=== PATIENT | female | born 1975 | race Caucasian/White ===

== ENCOUNTER 2017-10-11 07:56 | Day surgery (SDC) | payer MEDICAID ==
[~2017-10-11 07:56] MED LIST: Midazolam 1 MG/ML 2 ML SDV ONE; Propofol 200 MG/20 ML SDV ONE; fentaNYL 100 MCG/2 ML SDV ONE
[2017-10-11] MEDS ORDERED: Dextrose 5%-Lactated Ringers 1,000 ML IV SCH (08:15)
[2017-10-11] MEDS ORDERED: Glycopyrrolate 0.2 MG/ML 2 ML SDV IVPUSH ONE (09:00)
[2017-10-11] MEDS ORDERED: Propofol 200 MG/20 ML SDV ONE (10:03)
--- NOTE | 2017-10-15 09:15 | OR ---
DATE OF PROCEDURE: 10/11/2017 PREOPERATIVE DIAGNOSIS: Dysphagia associated with history of Schatzki's ring. POSTOPERATIVE DIAGNOSIS: Dysphagia associated with history of Schatzki's ring. OPERATIVE PROCEDURE: Upper gastrointestinal endoscopy with dilation of esophagus (06820). ANESTHESIA: IV sedation. INDICATION FOR PROCEDURE: This is a 42-year-old presenting with some recurrent dysphagia. She is status post previous upper endoscopy with dilation of Schatzki's ring in the distal esophagus. Plan is to proceed with repeat upper endoscopy with biopsies and/or dilation as indicated. Potential risks including bleeding and perforation were discussed, and the patient wishes to proceed. DETAILS OF PROCEDURE: The patient was taken to the operating room and placed in a left lateral decubitus position. IV sedation was administered, after which the upper GI endoscope was passed orally through the length of the esophagus and into the stomach with retroflexion view of the fundus, and thereafter, through the pyloric channel and into the proximal duodenum. The findings included a normal hypopharynx, larynx, upper esophageal sphincter, and esophageal body. At the distal esophagus, there was no true ring, but there was some generalized thickening and narrowing in the area of the esophagogastric junction. It was not associated with any significant mucosal inflammation. The scope could be passed through that area without difficulty. Remainder of the stomach, pyloric channel, and duodenal exams were unremarkable. At this point, a guidewire was passed through the stomach and the gastroscope removed. The distal esophagus was then dilated initially with passage of a 48-Tai[place]ese Savary dilator over the guidewire and following this a 54-Tai[place]ese Savary dilator was placed. Then, the latter had a fair bit of pressure, and we elected not to proceed with a 60-Taiwanese dilator, to minimize chances of perforation. At that point, the 54-Taiwanese dilator and guidewire were removed, and the patient taken to the recovery room in satisfactory condition. There were no evident complications. Carlos Cuevas MD /[id number]
== END 2017-10-11 11:19 | disposition home or self-care (01) ==
LOC: JP.SDS 07:56
PROVIDERS: ATTEND Surgery
DX: K22.2 Esophageal obstruction (principal); Z91.011 Allergy to milk products
CPT/HCPCS: 43248; J2250; J2704; J3010; J7042; J3490

== ENCOUNTER 2022-09-22 07:58 | Day surgery (SDC) | payer MEDICAID ==
[~2022-09-22 07:58] MED LIST changes: -fentaNYL 100 MCG/2 ML SDV ONE; +fentaNYL 50 MCG/ML SDV ONE
[2022-09-22] MEDS ORDERED: Dextrose 5%-Lactated Ringers 1,000 ML IV SCH (08:30)
== END 2022-09-22 10:56 | disposition home or self-care (01) ==
LOC: JP.SDS 07:58
PROVIDERS: ATTEND Surgery
DX: Z12.11 Encounter for screening for malignant neoplasm of colon (principal); Z80.0 Family history of malignant neoplasm of digestive organs; Z91.011 Allergy to milk products; Z91.040 Latex allergy status; Z79.899 Other long term (current) drug therapy
CPT/HCPCS: 45380; 45385; J2250; J2704; J3010; J7121; 88305

== ENCOUNTER 2025-09-10 22:03 | Emergency (ER) | payer MEDICAID, OTHER ==
[2025-09-10] MEDS: methylPREDNISolone Sodium Succinate 125 MG/2 ML SDV IVPUSH ONE (22:14)
== END 2025-09-10 23:07 | disposition home or self-care (01) ==
LOC: JP.ED 22:03
DX: T78.40XA Allergy, unspecified, initial encounter (principal); J45.909 Unspecified asthma, uncomplicated; K21.9 Gastro-esophageal reflux disease without esophagitis; Z91.040 Latex allergy status; Z91.0110 Allergy to milk products, unspecified; Z79.899 Other long term (current) drug therapy
CPT/HCPCS: 96374; 99283; J2919